=== PATIENT | female | born 1995 | race African-American/Black ===

== ENCOUNTER 2018-01-21 16:52 | Inpatient (IN) ==
[2018-01-21] MEDS ORDERED: LACTATED RINGERS 1,000 ML IV SCH ×2 (18:00→20:30)
[2018-01-21 19:46] LABS: Basophils % 0.2 % (0.0-0.8); Eosinophils # 0.1 10*3/uL (0.0-0.87); Eosinophils % 1.5 % (0.00-10.9); Hematocrit 31.9 VOL% (35.7-47.0); Hemoglobin 10.3 GM/DL (12.0-16.0); Immature Granulocytes % 0.6 %; Immature Granulocytes Absolute 0.06 #; Lymphocytes # 1.7 10*3/uL (1.4-4.0); Lymphocytes % 17.6 % (21.3-54.2); Mean Corpuscular HGB Conc 32.3 GM/DL (32-36); Mean Corpuscular Hemoglobin 31 PG (27-34); Mean Corpuscular Volume 97.3 FL (87-102); Mean Platelet Volume 11.7 FL (9.6-12.0); Monocytes # 0.9 10*3/uL (0.11-0.8); Monocytes % 9.1 % (1.7-12.7); Neutrophils # 6.9 10*3/uL (1.4-7.4); Platelet Count 211 T/CUMM (130-400); Red Blood Count 3.28 MC/CUMM (3.8-5.5); Red Cell Distribution Width 13.1 % (9.3-17.3); White Blood Count 9.7 T/CUMM (4-12)
[2018-01-21 19:53] LABS: Apearance,Urine CLEAR (Clear); Bilirubin,Urine Negative (Negative); Blood, Urine Negative (Negative); Glucose,Urine (UA) Negative (Negative); Ketones,Urine Negative (Negative); Mucus,Urine Occasional /LPF (Occasional); Nitrite,Urine Negative (Negative); Protein,Urine Negative; RBC,Urine 1 /HPF (0-4); Squamous Epithelial Cell,Urine Occasional /HPF (0-10); Urine Color Yellow (Yellow); Urine Specific Gravity 1.012 (1.001-1.035); Urine Urobilinogen < 2.0 EU/DL (0.2-1.0); WBC,Urine 3 /HPF (0-6)
[2018-01-21 19:54] LABS: Barbiturates Screen,Urine Negative (Negative); Benzodiazepines Screen,Urine Negative (Negative); Cannabinoid Screen,Urine Positive (Negative); Opiate Screen,Urine Negative (Negative); Phencyclidine Screen,Urine Negative (Negative)
[2018-01-21 20:06] LABS: Alanine Aminotransferase 20 U/L (13-56); Albumin 2.4 G/DL (3.4-5.0); Alkaline Phosphatase 86 U/L (45-117); Aspartate Amino Transferase 19 U/L (0-37); Bilirubin,Total < 0.39 MG/DL (0.2-1.0); Blood Urea Nitrogen 7 MG/DL (7-18); Calcium 8.4 MG/DL (8.5-10.1); Glucose 77 MG/DL (74-106); Osmolality,Calculated 275.4 MOS/KG (273-304); Potassium 3.6 MMOL/L (3.5-5.1); Sodium 140 MMOL/L (136-145)
[2018-01-21] MEDS ORDERED: MEPERIDINE 50 MG/1 ML VIAL IM PRN (20:26)
[2018-01-21] MEDS ORDERED: BUTORPHANOL 2 MG/ML VIAL IV PRN (20:26)
[2018-01-21] MEDS ORDERED: ONDANSETRON 4 MG/2 ML VIAL IV PRN (20:26)
[2018-01-21] MEDS ORDERED: FAMOTIDINE 20 MG/2 ML VIAL IV ONE (20:32)
[2018-01-21] MEDS ORDERED: OXYTOCIN/LR 20 UNIT/1,000 ML BAG IV ONE ×2 (20:35→20:36)
[2018-01-21] MEDS ORDERED: CITRIC ACID/SODIUM CITRATE 30 ML UDCUP ONE (20:35)
[2018-01-21] MEDS ORDERED: ceFAZolin 2,000 MG in PREMIX 1 EACH IV ONE (20:35)
[2018-01-21] MEDS ORDERED: METHYLERGONOVINE 0.2 MG/1 ML AMP ONE (20:35)
[2018-01-21] MEDS ORDERED: CITRIC ACID/SODIUM CITRATE 30 ML UDCUP PO ONE (20:35)
[2018-01-21 21:05] LABS: Amorphous Crystals,Urine Few /HPF (Few); Apearance,Urine CLEAR (Clear); Bilirubin,Urine Negative (Negative); Blood, Urine Small mg/dL (Negative); Glucose,Urine (UA) Negative (Negative); Ketones,Urine Negative (Negative); Mucus,Urine Occasional /LPF (Occasional); Nitrite,Urine Negative (Negative); Protein,Urine Negative; RBC,Urine 4 /HPF (0-4); Urine Color Yellow (Yellow); Urine Urobilinogen < 2.0 EU/DL (0.2-1.0); WBC,Urine 2 /HPF (0-6)
[2018-01-21 21:36] LABS: HIV Antigen/Antibody Result Nonreactive (Nonreactive); Hepatitis B Surface Ag Quant < 0.10 Index; Hepatitis B Surface Ag Result Negative (Negative); Rubella Antibody IgG 319.5 IU/ML
[2018-01-21] MEDS ORDERED: PHENYLEPHRINE 1 MG/10 ML SYRINGE IV ONE (23:25)
[2018-01-21] MEDS ORDERED: MEPERIDINE 50 MG/1 ML VIAL IV ONE (23:53)
[2018-01-22] MEDS ORDERED: fentaNYL 100 MCG/2 ML VIAL ONE (00:06)
[2018-01-22] MEDS ORDERED: MORPHINE 10 MG/10 ML VIAL ONE (00:07)
[2018-01-22] MEDS ORDERED: MIDAZOLAM 2 MG/2 ML VIAL ONE (00:07)
[2018-01-22] MEDS ORDERED: diphenhydrAMINE 50 MG/1 ML VIAL ONE (00:08)
[2018-01-22] MEDS ORDERED: RHO(D) IMMUNE GLOBULIN 300 MCG SYRINGE IM ONE (01:28)
[2018-01-22] MEDS ORDERED: SIMETHICONE CHEW 80 MG TABLET PO PRN (01:28)
[2018-01-22] MEDS ORDERED: ACETAMINOPHEN 325 MG TABLET PO PRN (01:28)
[2018-01-22] MEDS: diphenhydrAMINE 50 MG/1 ML VIAL IV PRN ×2 (04:34→11:28)
[2018-01-22] MEDS: ceFAZolin 1,000 MG in SYRINGE 1 EACH IV SCH ×2 (04:41→12:42)
[2018-01-22 05:10] LABS: Basophils % 0.2 % (0.0-0.8); Eosinophils # 0.1 10*3/uL (0.0-0.87); Eosinophils % 0.5 % (0.00-10.9); Hematocrit 29.7 VOL% (35.7-47.0); Hemoglobin 9.8 GM/DL (12.0-16.0); Immature Granulocytes % 0.6 %; Immature Granulocytes Absolute 0.07 #; Lymphocytes # 1.4 10*3/uL (1.4-4.0); Lymphocytes % 12.4 % (21.3-54.2); Mean Corpuscular Hemoglobin 31 PG (27-34); Mean Corpuscular Volume 95.2 FL (87-102); Mean Platelet Volume 11.4 FL (9.6-12.0); Monocytes # 0.7 10*3/uL (0.11-0.8); Monocytes % 6.4 % (1.7-12.7); Neutrophils # 9.3 10*3/uL (1.4-7.4); Neutrophils % 79.9 % (38.7-73.9); Platelet Count 206 T/CUMM (130-400); Red Blood Count 3.12 MC/CUMM (3.8-5.5); Red Cell Distribution Width 13.1 % (9.3-17.3); White Blood Count 11.6 T/CUMM (4-12)
[2018-01-22] MEDS: IBUPROFEN 800 MG TABLET PO SCH ×3 (06:53→22:09)
[2018-01-22] MEDS: DOCUSATE SODIUM 100 MG CAPSULE PO SCH ×2 (08:41→19:36)
[2018-01-22] MEDS: MULTIVITAMIN (PRENATAL) TABLET PO SCH (08:41)
[2018-01-22] MEDS: diphenhydrAMINE CAP 25 MG CAPSULE PO PRN ×2 (16:38→22:09)
[2018-01-22] MEDS: MAGNESIUM HYDROXIDE SUSP 30 ML UDCUP PO PRN (19:36)
[2018-01-23] MEDS: DOCUSATE SODIUM 100 MG CAPSULE PO SCH ×4 (00:31→23:05)
[2018-01-23] MEDS: IBUPROFEN 800 MG TABLET PO SCH ×2 (06:35→16:41)
[2018-01-23] MEDS: MULTIVITAMIN (PRENATAL) TABLET PO SCH (09:17)
[2018-01-23] MEDS ORDERED: RHO(D) IMMUNE GLOBULIN 300 MCG SYRINGE IM ONE (09:42)
[2018-01-23] MEDS: diphenhydrAMINE CAP 25 MG CAPSULE PO PRN (23:09)
[2018-01-24] MEDS: IBUPROFEN 800 MG TABLET PO SCH ×2 (01:26→11:23)
[2018-01-24] MEDS: DOCUSATE SODIUM 100 MG CAPSULE PO SCH ×2 (10:26→21:23)
[2018-01-24] MEDS: MULTIVITAMIN (PRENATAL) TABLET PO SCH (10:27)
[2018-01-24] MEDS: MAGNESIUM HYDROXIDE SUSP 30 ML UDCUP PO PRN ×2 (10:39→21:23)
[2018-01-24] MEDS ORDERED: ACETAMINOPHEN 325 MG TABLET PO PRN (12:00)
[2018-01-24] MEDS: ceFAZolin 2,000 MG in PREMIX 1 EACH IV SCH ×2 (13:00→21:24)
[2018-01-24] MEDS: LACTATED RINGERS 1,000 ML IV SCH (21:00)
[2018-01-25] MEDS: IBUPROFEN 800 MG TABLET PO SCH ×2 (00:31→07:54)
[2018-01-25] MEDS: LACTATED RINGERS 1,000 ML IV SCH (04:51)
[2018-01-25] MEDS: ceFAZolin 2,000 MG in PREMIX 1 EACH IV SCH (05:41)
[2018-01-25 08:12] VITALS: BP 96/48
[2018-01-25] MEDS: MULTIVITAMIN (PRENATAL) TABLET PO SCH (09:23)
[2018-01-25] MEDS: DOCUSATE SODIUM 100 MG CAPSULE PO SCH (09:23)
== END 2018-01-25 12:00 | disposition home or self-care (01) | DRG 540 ==
LOC: N.LDOUT 16:52 → N.LD 16:54 → N.OB 01-22 01:30
PROVIDERS: ADMIT Obstetrics & Gynecology; ATTEND Obstetrics & Gynecology
PROC: LDCSECT (ICD-10-PCS; 2018-01-21 21:35)